=== PATIENT | female | born 1960 | race Caucasian/White ===

== ENCOUNTER 2016-10-02 18:45 | Inpatient (IN) | payer MEDICAID, OTHER ==
[~2016-10-02] VITALS: Ht 165.1 cm; Wt 86.4 kg
[~2016-10-02 18:45] MED LIST: FIORICET PO; QUET100T PO
--- NOTE | 2016-10-03 02:38 | ERA ---
ER Documentation Chief Complaint Date/Time DATE: 10/03/16 TIME: 02:37 Chief Complaint SUBSTERNAL CP HPI The patient is a 56-year-old female, presenting to the ER because of substernal chest pain intermittently for 1 day, associated with dizziness. The chest pain 7/10, worse with movement. She denies similar symptoms previously, denies chest pain with diaphoresis or vomiting or dyspnea. She denies abdominal pain, vomiting, dysuria, diarrhea, constipation. She does not smoke nor drink Past medical history: Hypertension, bipolar disorder Past surgical history: ROS All systems reviewed and are negative except as per history of present illness. Medications Home Meds Active Scripts Acetamin/Butalbital/Caffeine* (Fioricet*) 1 Tab Tab, 1 TAB PO Q4H Y for PAIN LEVEL 1-5 for 14 Days, TAB Prov:ASPEN CHILEL MD 12/01/15 Reported Medications Quetiapine Fumarate* (Seroquel*) 100 Mg Tablet, 100 MG PO HS, TAB 08/26/14 Allergies Allergies: Coded Allergies: No Known Allergy (Unverified , 11/05/14) PMhx/Soc History of Surgery: Yes () Anesthesia Reaction: No Hx Neurological Disorder: No Hx Respiratory Disorders: No Hx Cardiac Disorders: Yes (HTN) Hx Psychiatric Problems: Yes (BIPOLAR) Hx Miscellaneous Medical Probl: No Hx Alcohol Use: No Hx Substance Use: No Hx Tobacco Use: No Physical Exam Vitals Vital Signs Date Time Temp Pulse Resp B/P Pulse Ox O2 Delivery O2 Flow Rate FiO2 10/02/16 18:49 99.0 98 16 181/87 97 Physical Exam Const: No acute distress. Head: Atraumatic. Eyes: Normal Conjunctiva. ENT: Normal External Ears, Nose and Mouth. Neck: Full range of motion. No meningismus. Resp: Clear to auscultation bilaterally. Cardio: Regular rate and rhythm, no murmurs. Abd: Soft, non distended, normal bowel sounds, non tender. Skin: No petechiae or rashes. Back: No midline or flank tenderness. Ext: No cyanosis, or edema. Neur: Awake and alert. No focal deficit Psych: Normal Mood and Affect. Result Diagram: 10/03/16 0319 10/03/16 0319 Results 24 hrs Laboratory Tests Test 10/03/16 03:19 White Blood Count 7.410^3/ul Red Blood Count 4.4810^6/ul Hemoglobin 13.9g/dl Hematocrit 40.1% Mean Corpuscular Volume 89.5fl Mean Corpuscular Hemoglobin 31.0pg Mean Corpuscular Hemoglobin Concent 34.7g/dl Red Cell Distribution Width 12.7% Platelet Count 49738^3/UL Mean Platelet Volume 11.6fl Neutrophils % 55.5% Lymphocytes % 32.9% Monocytes % 9.1% Eosinophils % 1.9% Basophils % 0.5% Nucleated Red Blood Cells % 0.0/100WBC Neutrophils # 4.110^3/ul Lymphocytes # 2.410^3/ul Monocytes # 0.710^3/ul Eosinophils # 0.110^3/ul Basophils # 0.010^3/ul Nucleated Red Blood Cells # 0.010^3/ul Prothrombin Time 13.3Sec Prothrombin Time Ratio 1.0 INR International Normalized Ratio 1.01 Activated Partial Thromboplast Time 30.8Sec Sodium Level 142mmol/L Potassium Level 4.3mmol/L Chloride Level 107mmol/L Carbon Dioxide Level 22mmol/L Anion Gap 17 Blood Urea Nitrogen 14mg/dl Creatinine 0.62mg/dl Glucose Level 93mg/dl Calcium Level 9.0mg/dl Creatine Kinase 183IU/L Creatine Kinase Index 0.8 Creatinine Kinase MB (Mass) 1.55ng/ml Troponin I < 0.012ng/ml Current Medications Medications (Trade) Dose Ordered Sig/Dandre Route PRN Reason Start Time Stop Time Status Last Admin Dose Admin Aspirin (Aspirin) 325 mg ONCE STAT PO 10/03/16 02:43 10/03/16 02:45 DC 10/03/16 03:02 Nitroglycerin (Nitroglycerin 2% Oint) 1 inch ONCE STAT TD 10/03/16 02:43 10/03/16 02:45 DC 10/03/16 03:02 Procedures/MDM EKG: At 6:55 PM read by emergency physician Rate/Rhythm: Normal Sinus Rhythm 88 beats/min QRS, ST, T-waves: No ST elevation, no T inversion Impression: Normal EKG EKG: At 3:21 AM read by emergency physician Rate/Rhythm: Sinus bradycardia 58 beats/min QRS, ST, T-waves: No ST elevation, no T inversion Impression: Normal EKG MEDICAL MAKING DECISION: The patient is a 56-year-old female, presenting with acute chest pain, concerning for ACS. She was treated with aspirin 325 mg p.o. and 1 inch of nitroglycerin ointment with good response. The differential diagnoses considered include but are not limited to acute coronary syndrome, acute myocardial infarction, pericarditis, pulmonary embolism, aortic dissection , pneumonia, pleural effusion, pneumothorax, GERD, chest wall pain. Departure Diagnosis: Primary Impression: Chest pain Condition: Stable Comments I discussed the findings with the patient. I discussed the patient with the on- call hospitalist Dr. George who was made aware of the lab, the treatment, the patient condition. The patient is admitted to telemetry for 24 hour observation at 5 AM SEA NUÑEZ MD October 03, 2016 02:38
[2016-10-03] MEDS ORDERED: ASPIRIN 325 MG TAB PO STA (02:43)
[2016-10-03] MEDS ORDERED: NITROGLYCERIN 2% 1 GM OINT PKT TD STA (02:43)
[2016-10-03 03:39] LABS: ADD SCAN DIFF NO
--- NOTE | 2016-10-03 03:42 | RADRPT ---
PROCEDURE: Chest. CLINICAL INDICATION: Chest pain. TECHNIQUE: Single frontal view of the chest was obtained. COMPARISON: None. FINDINGS: The cardiac silhouette is within normal limits. The aortic arch is unremarkable. There is no focal consolidation, vascular congestion or pleural effusion. There is no pneumothorax. IMPRESSION: No evidence for active cardiopulmonary disease. .Clint French MD, MD Date Time Electronically viewed and signed by .Clint French MD, on 10/03/2016 03:41 .T/
[2016-10-03 03:57] LABS: POTASSIUM 4.3 mmol/L (3.5-5.1)
[2016-10-03 03:59] LABS: INR 1.01; PROTIME 13.3 Sec (12.2-14.2)
[2016-10-03 04:00] LABS: CREATININE 0.62 mg/dl (0.44-1.00); PARTIAL THROMBOPLASTIN TIME 30.8 Sec (25.0-35.0)
[2016-10-03 04:01] LABS: BASOPHILS % 0.5 % (0.0-2.0); CREATINE KINASE 183 IU/L (23-200); EOSINOPHILS # 0.1 10^3/ul (0.0-0.5); EOSINOPHILS % 1.9 % (0.0-7.0); HEMATOCRIT 40.1 % (37.0-47.0); HEMOGLOBIN 13.9 g/dl (12.0-16.0); LYMPHOCYTES # 2.4 10^3/ul (0.8-2.9); LYMPHOCYTES % 32.9 % (15.0-51.0); MEAN CORPUSCULAR HGB CONC 34.7 g/dl (32.0-37.0); MEAN CORPUSCULAR VOLUME 89.5 fl (82.0-101.0); MEAN PLATELET VOLUME 11.6 fl (7.4-10.4); MONOCYTE # 0.7 10^3/ul (0.3-0.9); MONOCYTES % 9.1 % (0.0-11.0); NEUTROPHIL # 4.1 10^3/ul (1.6-7.5); NEUTROPHILS % 55.5 % (39.0-77.0); PLATELET COUNT 189 10^3/UL (140-415); RED BLOOD COUNT 4.48 10^6/ul (4.20-5.40); RED CELL DISTRIBUTION WIDTH 12.7 % (11.5-14.5); WHITE BLOOD COUNT 7.4 10^3/ul (4.8-10.8)
[2016-10-03 04:02] LABS: CREATINE KINASE 173 IU/L (23-200)
[2016-10-03 04:10] LABS: CK-MB 1.55 ng/ml (0.0-2.4)
[2016-10-03 04:11] LABS: CK-MB 1.52 ng/ml (0.0-2.4)
[2016-10-03 04:12] LABS: TROPONIN-I 0.012 ng/ml (0.00-0.12)
[2016-10-03 04:14] LABS: TROPONIN-I < 0.012 ng/ml (0.00-0.12)
[2016-10-03] MEDS ORDERED: BEN25 PO (07:55)
[2016-10-03] MEDS ORDERED: LISI10TA2 PO (07:55)
[2016-10-03] MEDS ORDERED: ONDANSETRON 4 MG INJ IV STA (08:11)
[2016-10-03 08:19] LABS: CHOL/HDL RATIO 6.2 RATIO
[2016-10-03 11:03] LABS: CREATINE KINASE 166 IU/L (23-200)
[2016-10-03 11:14] LABS: CK-MB 1.58 ng/ml (0.0-2.4)
[2016-10-03 11:27] LABS: TROPONIN-I < 0.012 ng/ml (0.00-0.12)
--- NOTE | 2016-10-03 11:36 | CONS ---
Date/Time of Note Date/Time of Note DATE: 10/03/16 TIME: 11:30 Assessment/Plan Assessment/Plan Additional Assessment/Plan Hypertension, uncontrolled Abdominal pain and chest pain Nausea and vomiting Psychiatric disorder -Patient presented with hypertension found incidentally at the dental office to be uncontrolled. Patient describing abdominal pain which radiates to the chest with nausea and vomiting. Initial cardiac enzymes are negative, ECG without any significant ischemic abnormalities. Echocardiogram has been performed and will be reviewed. Blood pressure is currently well controlled. Continue JASON inhibitor. Would concurrently evaluate other noncardiac causes of patient's symptoms. Consultation Date/Type/Reason Admit Date/Time Type of Consultation: cv Reason for Consultation Hypertension and chest pain Hx of Present Illness This is a 56-year-old female with past medical history of hypertension, psychiatric disorder who presented to her dentist yesterday for dental work. While she was there, vitals were taken and patient was found to be hypertensive with systolic blood pressure above 180. She was told to go to the emergency room for further evaluation and care. Patient was complaining of headache, intermittent abdominal pain and chest pain. She denies exertional chest pain or shortness of breath. As I came in to see the patient, she was eating and vomiting. She stated she has been nauseous since this morning but wants to eat. She currently denies any chest pain or shortness of breath but complaining of abdominal pain after vomiting. She denies any dizziness, lightheadedness. She does complain of intermittent headaches. 12 point review of systems was performed with all pertinent positives and negatives mentioned above and all else is negative Past Medical History Psychiatric disorder Medical History: hypertension Family History Significant Family History: no pertinent family hx Social History Alcohol Use: rarely Smoking Status: Never smoker Other Social History Not working Exam/Review of Systems Vital Signs Vitals Vital Signs Date Time Temp Pulse Resp B/P Pulse Ox O2 Delivery O2 Flow Rate FiO2 10/03/16 10:54 61 18 142/82 99 Room Air 10/02/16 18:49 99.0 Exam Initially vomiting but currently no apparent distress, sitting in bed Constitutional: alert, oriented Head: normocephalic Respiratory: clear to auscultation, normal air movement Cardiovascular: other (S1-S2 heard), regular rate and rhythm Gastrointestinal: bowel sounds, other (No guarding), soft, tender (Tenderness left lower quadrant and left upper quadrant) Extremities: other (No edema or cyanosis) Results Result Diagram: 10/03/16 0319 10/03/16 0319 Results 24 hrs Laboratory Tests Test 10/03/16 03:19 10/03/16 10:30 White Blood Count 7.4 # Red Blood Count 4.48 Hemoglobin 13.9 Hematocrit 40.1 Mean Corpuscular Volume 89.5 Mean Corpuscular Hemoglobin 31.0 Mean Corpuscular Hemoglobin Concent 34.7 Red Cell Distribution Width 12.7 Platelet Count 189 Mean Platelet Volume 11.6 #H Neutrophils % 55.5 Lymphocytes % 32.9 Monocytes % 9.1 Eosinophils % 1.9 Basophils % 0.5 Nucleated Red Blood Cells % 0.0 Neutrophils # 4.1 Lymphocytes # 2.4 Monocytes # 0.7 Eosinophils # 0.1 Basophils # 0.0 Nucleated Red Blood Cells # 0.0 Prothrombin Time 13.3 Prothrombin Time Ratio 1.0 INR International Normalized Ratio 1.01 Activated Partial Thromboplast Time 30.8 Sodium Level 142 Potassium Level 4.3 Chloride Level 107 Carbon Dioxide Level 22 Anion Gap 17 H Blood Urea Nitrogen 14 Creatinine 0.62 Glucose Level 93 Hemoglobin A1c 5.4 Calcium Level 9.0 Creatine Kinase 183 166 Creatine Kinase Index 0.8 1.0 Creatinine Kinase MB (Mass) 1.55 1.58 Troponin I < 0.012 < 0.012 Triglycerides Level 113 Cholesterol Level 81 L LDL Cholesterol, Calculated 45 HDL Cholesterol 13 L Cholesterol/HDL Ratio 6.2 Procedures Procedures ECG demonstrates sinus rhythm, normal QRS duration, no significant ischemic ST2 abnormalities. This is ECG done after patient vomiting. Antonio Mooney DO October 03, 2016 11:36
--- NOTE | 2016-10-03 13:14 | RADRPT ---
Echocardiogram Report Patient Name: ONIEL ELLINGTON Gender: Female Date: 1960 Study Date: 03-Oct-2016 Winch Runner: SUKHJINDER [facility] Location: [facility] Ref. Physician: MERNA STEVENS Quality: Adequate Procedures: Transthoracic echocardiogram with complete 2D, M-Mode, and doppler examination. Indications: Chest Pain. 2D/M Mode Doppler Measurement Value Normal Ranges Measurement Value Normal Ranges AoR Diam MM 1.7 cm AV Peak Elvin 1.1 m/sec LA/Ao MM 1.9 AV Peak PG 5.1 mmHg LA Dimen MM 3.2 cm LVOT Peak Elvin 0.9 m/sec LVIDd 2D 4.7 3.5 - 5.6 cm LVOT Peak PG 3.2 mmHg LVIDs 2D 3.5 2.1 - 4.1 cm MV E Peak Elvin 0.6 m/sec LVPWd 2D 1.3 0.6 - 1.1 cm MV A Peak Elvin 0.8 m/sec IVSd 2D 1.3 0.6 - 1.1 cm MV E/A 0.8 AoR Diam 2D 2.4 2.0 - 3.7 cm MV Decel Time 162 msec EDV 2D 102.8 cm3 MV Decel [place] 4 ESV 2D 41.6 cm3 MV E/A 0.8 LA Dimen 2D 3.2 2.3 - 4.0 cm Findings Left Ventricle: Normal left ventricular systolic function. Normal left ventricular cavity size. Mild concentric left ventricular hypertrophy. Ejection fraction is visually estimated at 60 %. Tissue Doppler/Mitral Doppler indices are consistent with impaired relaxation (Stage I diastolic dysfunction). Right Ventricle: Normal right ventricular size. Normal right ventricular systolic function. Left Atrium: The left atrium is normal in size. Right Atrium: The right atrium is normal in size. Mitral Valve: Mitral valve leaflets appear mildly thickened. Mild mitral annular calcification. Trace mitral regurgitation. Aortic Valve: No significant aortic stenosis or insufficiency. Aortic cusps appear mildly calcified. Tricuspid Valve: Normal appearance of the tricuspid valve. There is mild tricuspid regurgitation. Pulmonic Valve: There is trace pulmonic regurgitation. Pericardium: Normal pericardium with no significant pericardial effusion. Aorta: Normal aortic root. IVC: Normal size and normal respiratory collapse consistent with normal right atrial pressure. Conclusions 1.Normal left ventricular systolic function. Normal left ventricular cavity size. Mild concentric left ventricular hypertrophy. Ejection fraction is visually estimated at 60 %. Tissue Doppler/Mitral Doppler indices are consistent with impaired relaxation (Stage I diastolic dysfunction). 2.Normal right ventricular size. Normal right ventricular systolic function. 3.The left atrium is normal in size. 4.The right atrium is normal in size. 5.No significant aortic stenosis or insufficiency. 6.There is mild tricuspid regurgitation. 7.Trace mitral regurgitation. 8.Normal pericardium with no significant pericardial effusion. Electronically Signed By: Antonio Mooney 03-Oct-2016 13:14:30 -0700 Patient Name: ONIEL ELLINGTON Study Date: 03-Oct-2016 [id number]
--- NOTE | 2016-10-03 15:32 | HP ---
DATE OF ADMISSION: 10/02/2016 REASON FOR PRESENTATION: Chest pain. HISTORY OF PRESENT ILLNESS: This is a 56-year-old lady with history of hypertension, psychiatric di sorder, was seen by a dentist yesterday, found to be hypertensive, came to the emergency room for fu rther evaluation. Here was complaining of mild abdominal discomfort and chest discomfort. No nause a, no vomiting, no radiation of pain, no hemoptysis, hematemesis. Denies any shortness of breath, n o prior history of cardiac problems. PAST MEDICAL HISTORY: Hypertension, psychiatric disorder. SOCIAL HISTORY: She is a nonsmoker, no alcohol, no history of drug use. FAMILY HISTORY: Noncontributory. SYSTEMS REVIEW: A 12-point review of system was negative other than that mentioned above. PHYSICAL EXAMINATION: GENERAL: Well-nourished, well-developed lady, comfortable at rest, no acute distress. VITAL SIGNS: Temperature 98, pulse 61, blood pressure 140/82, O2 saturation 99% on room air. NECK: Supple. No JVD or lymphadenopathy. CARDIAC: S1, S2, no added sounds or murmurs. CHEST: Diminished air entry bilaterally. ABDOMEN: Soft, nontender, obese. EXTREMITIES: No cyanosis, clubbing or edema. NEUROLOGIC: Generalized weakness. LABORATORY DATA: White count 7.4, hemoglobin 13.9. Chemistry within normal limits. Troponins are negative. EKG shows normal sinus rhythm, no acute ischemic changes. DIAGNOSTIC STUDIES: Chest x-ray was unremarkable. Echocardiogram shows preserved ejection fraction , stage 1 diastolic dysfunction. IMPRESSION AND PLAN: 1. Chest pain, rule out coronary ischemia which seems unlikely given initial study and history. 2. History of hypertension. 3. Anxiety disorder. The patient will need: 1. Cardiac evaluation and recommendations, a stress test if indicated. 2. Continue psych medications. 3. Discharge soon. Follow up with primary care physician. Dictated By: TOBIAS REAVES/LINDSEY Conf#: [id number] DID#: [id number]
[2016-10-03 16:03] VITALS: BP 162/78; PULSE 58; RESP 20; Ht 165.1 cm; Wt 86.4 kg
[2016-10-03] MEDS ORDERED: ALPRAZOLAM 0.5 MG TAB PO PRN (16:30)
[2016-10-03] MEDS ORDERED: ONDANSETRON 4 MG INJ IV PRN (16:30)
[2016-10-03 16:47] VITALS: PULSE 58
[2016-10-03] MEDS: ACETAMINOPHEN 325 MG TAB PO PRN (16:51)
[2016-10-03 20:19] VITALS: PULSE 58
[2016-10-03 20:54] VITALS: BP 138/79; RESP 18
[2016-10-03 21:06] LABS: ADD UMIC YES; URINE BILIRUBIN (Dip) NEGATIVE (NEGATIVE); URINE BLOOD (Dip) TRACE (NEGATIVE); URINE COLOR LT. YELLOW (YELLOW); URINE GLUCOSE (Dip) NEGATIVE (NEGATIVE); URINE KETONES (Dip) 40 (NEGATIVE); URINE LEUKOCYTE ESTERASE (Dip) NEGATIVE (NEGATIVE); URINE NITRITE (Dip) NEGATIVE (NEGATIVE); URINE TOTAL PROTEIN (Dip) NEGATIVE (NEGATIVE); URINE UROBILINOGEN (Dip) 0.2 E.U./dL (0.1-1.0)
[2016-10-03 21:16] LABS: BACTERIA,URINE FEW; SQUAMOUS EPITHELIAL CELL,UR MODERATE
[2016-10-03] MEDS: QUETIAPINE 100 MG TAB PO SCH (21:33)
[2016-10-04] VITALS (17 sets, daily range): BP systolic 107–150; BP diastolic 60–83; PULSE 53–154; RESP 18–20
[2016-10-04 07:28] LABS: ADD SCAN DIFF NO
[2016-10-04 07:38] LABS: BASOPHILS % 0.4 % (0.0-2.0); EOSINOPHILS # 0.1 10^3/ul (0.0-0.5); EOSINOPHILS % 1.4 % (0.0-7.0); HEMATOCRIT 41.1 % (37.0-47.0); HEMOGLOBIN 13.6 g/dl (12.0-16.0); LYMPHOCYTES % 24.8 % (15.0-51.0); MEAN CORPUSCULAR HEMOGLOBIN 29.8 pg (29.0-33.0); MEAN CORPUSCULAR HGB CONC 33.1 g/dl (32.0-37.0); MEAN CORPUSCULAR VOLUME 90.1 fl (82.0-101.0); MEAN PLATELET VOLUME 11.5 fl (7.4-10.4); MONOCYTE # 0.8 10^3/ul (0.3-0.9); NEUTROPHIL # 5.1 10^3/ul (1.6-7.5); NEUTROPHILS % 63.2 % (39.0-77.0); PLATELET COUNT 205 10^3/UL (140-415); RED BLOOD COUNT 4.56 10^6/ul (4.20-5.40)
[2016-10-04 07:54] LABS: POTASSIUM 3.3 mmol/L (3.5-5.1)
[2016-10-04 07:56] LABS: CREATININE 0.65 mg/dl (0.44-1.00)
[2016-10-04 07:57] LABS: CALCIUM 8.7 mg/dl (8.4-10.2); MAGNESIUM 2.2 mg/dl (1.7-2.5); PHOSPHORUS 4.2 mg/dl (2.5-4.9)
[2016-10-04 07:59] LABS: AMYLASE 52 U/L (11-123)
[2016-10-04 09:10] LABS: ALBUMIN 3.8 g/dl (3.3-4.9); BILIRUBIN,INDIRECT 0.6 mg/dl (0-1.1); BILIRUBIN,TOTAL 0.6 mg/dl (0.2-1.3); TOTAL PROTEIN 6.4 g/dl (6.1-8.1)
[2016-10-04] MEDS ORDERED: ASPIRIN (EC) 325 MG TAB PO ONE (09:30)
[2016-10-04] MEDS ORDERED: SOD CHLORIDE 0.9% 1,000 ML IV ONE (09:30)
[2016-10-04] MEDS: morphine 2 MG INJ IV PRN (09:31)
[2016-10-04] MEDS: LISINOPRIL 10 MG TAB PO SCH (09:32)
--- NOTE | 2016-10-04 09:53 | PN ---
Date/Time of Note Date/Time of Note DATE: 10/04/16 TIME: 09:49 Assessment/Plan VTE Prophylaxis VTE Prophylaxis Intervention: SCD's Lines/Catheters IV Catheter Type (from Nrsg): Saline Lock Assessment/Plan Assessment/Plan 1. Chest pain, rule out coronary ischemia 2. Hypertension: now controlled 3. Anxiety disorder. 4. Sinus tachycardia : ?anxiety, r/o thyroid disease PLAN: * Tachycardia could have been a source for her pain * complete ACS r/o, ASA and morphine for pain / await cardiology recs/ will initiate low dose BB therapy Subjective 24 Hr Interval Summary Free Text/Dictation patient still reporting mid sternal chest pain, also some pleurisy Cardiovascular: chest pain Exam/Review of Systems Vital Signs Vitals Vital Signs Date Time Temp Pulse Resp B/P Pulse Ox O2 Delivery O2 Flow Rate FiO2 10/04/16 08:52 151 10/04/16 07:37 97.8 18 112/68 98 10/03/16 16:03 Room Air Exam Constitutional: alert, obese, oriented Psych: anxiety Head: normocephalic Eyes: PERRL ENMT: mucosa pink and moist Neck: non-tender, supple Respiratory: clear to auscultation, No labored breathing, No wheezing Cardiovascular: nl pulses, regular rate and rhythm, No murmurs/extra sounds Gastrointestinal: bowel sounds, non-tender, soft Neurological: nl mental status Results Result Diagram: 10/04/16 0705 10/04/16 0705 Results 24 hrs Laboratory Tests Test 10/03/16 10:30 10/03/16 17:50 10/03/16 18:55 10/04/16 07:05 Creatine Kinase 166 Creatine Kinase Index 1.0 Creatinine Kinase MB (Mass) 1.58 Troponin I < 0.012 < 0.012 Urine Color LT. YELLOW Urine Clarity CLEAR Urine pH 6.5 Urine Specific [place] 1.015 Urine Ketones 40 Urine Nitrite NEGATIVE Urine Bilirubin NEGATIVE Urine Urobilinogen 0.2 E.U./dL Urine Leukocyte Esterase NEGATIVE Urine Microscopic RBC 2-5 Urine Microscopic WBC 0-2 Urine Squamous Epithelial Cells MODERATE Urine Bacteria FEW Urine Hemoglobin TRACE Urine Glucose NEGATIVE Urine Total Protein NEGATIVE White Blood Count 8.0 Red Blood Count 4.56 Hemoglobin 13.6 Hematocrit 41.1 Mean Corpuscular Volume 90.1 Mean Corpuscular Hemoglobin 29.8 Mean Corpuscular Hemoglobin Concent 33.1 Red Cell Distribution Width 13.0 Platelet Count 205 Mean Platelet Volume 11.5 H Neutrophils % 63.2 Lymphocytes % 24.8 Monocytes % 10.0 Eosinophils % 1.4 Basophils % 0.4 Nucleated Red Blood Cells % 0.0 Neutrophils # 5.1 Lymphocytes # 2.0 Monocytes # 0.8 Eosinophils # 0.1 Basophils # 0.0 Nucleated Red Blood Cells # 0.0 Sodium Level 143 Potassium Level 3.3 L Chloride Level 104 Carbon Dioxide Level 27 Anion Gap 15 Blood Urea Nitrogen 17 Creatinine 0.65 Glucose Level 97 Calcium Level 8.7 Phosphorus Level 4.2 Magnesium Level 2.2 Total Bilirubin 0.6 Direct Bilirubin 0.00 Indirect Bilirubin 0.6 Aspartate Amino Transf (AST/SGOT) 29 Alanine Aminotransferase (ALT/SGPT) 51 Alkaline Phosphatase 65 Total Protein 6.4 Albumin 3.8 Amylase Level 52 Lipase 108 Medications Medications Current Medications Lisinopril (Zestril) 10 mg DAILY PO Last administered on 10/04/16 09:32; Admin Dose 10 MG; Start 10/04/16 at 09:00 Quetiapine Fumarate (Seroquel) 100 mg HS PO Last administered on 10/03/16 21:33 ; Admin Dose 100 MG; Start 10/03/16 at 21:00 Acetaminophen (Tylenol Tab) 325 mg Q6H PRN PO PAIN AND OR ELEVATED TEMP Last administered on 10/03/16 16:51; Admin Dose 325 MG; Start 10/03/16 at 16:30 Ondansetron HCl (Zofran Inj) 4 mg Q6H PRN IV NAUSEA AND/OR VOMITING Last administered on 10/03/16 16:51; Admin Dose 4 MG; Start 10/03/16 at 16:30 Alprazolam (Xanax) 0.5 mg Q8H PRN PO ANXIETY; Start 10/03/16 at 16:30 Morphine Sulfate (morphine) 2 mg Q4H PRN IV pain Last administered on 10/04/16 09:31; Admin Dose 2 MG; Start 10/04/16 at 09:30 Aspirin 81 mg 81 mg DAILY PO ; Start 10/05/16 at 09:00 Sodium Chloride 1,000 ml @ 1,000 mls/hr Q1H ONCE IV Last administered on 09:31; Admin Dose 1,000 MLS/HR; Start 10/04/16 at 09:30; Stop 10/04/16 at 10: 29 Potassium Chloride/Sodium Chloride (KCl/NS) 110 ml @ 55 mls/hr ONCE ONCE IVPB ; Start 10/04/16 at 10:30; Stop 10/04/16 at 12:29 Procedures Procedures PROCEDURE: Chest. CLINICAL INDICATION: Chest pain. TECHNIQUE: Single frontal view of the chest was obtained. COMPARISON: None. FINDINGS: The cardiac silhouette is within normal limits. The aortic arch is unremarkable. There is no focal consolidation, vascular congestion or pleural effusion. There is no pneumothorax. IMPRESSION: No evidence for active cardiopulmonary disease. .Clint French MD, MD Date Time Electronically viewed and signed by .Clint French MD, MD on 10/03/2016 03:41 .T/ CC: ANTONIO NUÑEZ MD Echocardiogram Report Patient Name: ONIEL ELLINGTON Gender: Female Date: 1960 Study Date: 03-Oct-2016 Automatic Coin Machine Mechanic: SUKHJINDER [facility] Location: [facility] Ref. Physician: MERNA STEVENS Quality: Adequate Procedures: Transthoracic echocardiogram with complete 2D, M-Mode, and doppler examination. Indications: Chest Pain. 2D/M Mode Doppler Measurement Value Normal Ranges Measurement Value Normal Ranges AoR Diam MM 1.7 cm AV Peak Elvin 1.1 m/sec LA/Ao MM 1.9 AV Peak PG 5.1 mmHg LA Dimen MM 3.2 cm LVOT Peak Elvin 0.9 m/sec LVIDd 2D 4.7 3.5 - 5.6 cm LVOT Peak PG 3.2 mmHg LVIDs 2D 3.5 2.1 - 4.1 cm MV E Peak Elvin 0.6 m/sec LVPWd 2D 1.3 0.6 - 1.1 cm MV A Peak Elvin 0.8 m/sec IVSd 2D 1.3 0.6 - 1.1 cm MV E/A 0.8 AoR Diam 2D 2.4 2.0 - 3.7 cm MV Decel Time 162 msec EDV 2D 102.8 cm3 MV Decel [place] 4 ESV 2D 41.6 cm3 MV E/A 0.8 LA Dimen 2D 3.2 2.3 - 4.0 cm Findings Left Ventricle: Normal left ventricular systolic function. Normal left ventricular cavity size. Mild concentric left ventricular hypertrophy. Ejection fraction is visually estimated at 60 %. Tissue Doppler/Mitral Doppler indices are consistent with impaired relaxation (Stage I diastolic dysfunction). Right Ventricle: Normal right ventricular size. Normal right ventricular systolic function. Left Atrium: The left atrium is normal in size. Right Atrium: The right atrium is normal in size. Mitral Valve: Mitral valve leaflets appear mildly thickened. Mild mitral annular calcification. Trace mitral regurgitation. Aortic Valve: No significant aortic stenosis or insufficiency. Aortic cusps appear mildly calcified. Tricuspid Valve: Normal appearance of the tricuspid valve. There is mild tricuspid regurgitation. Pulmonic Valve: There is trace pulmonic regurgitation. Pericardium: Normal pericardium with no significant pericardial effusion. Aorta: Normal aortic root. IVC: Normal size and normal respiratory collapse consistent with normal right atrial pressure. Conclusions 1. Normal left ventricular systolic function. Normal left ventricular cavity size. Mild concentric left ventricular hypertrophy. Ejection fraction is visually estimated at 60 %. Tissue Doppler/Mitral Doppler indices are consistent with impaired relaxation (Stage I diastolic dysfunction). 2. Normal right ventricular size. Normal right ventricular systolic function. 3. The left atrium is normal in size. 4. The right atrium is normal in size. 5. No significant aortic stenosis or insufficiency. 6. There is mild tricuspid regurgitation. 7. Trace mitral regurgitation. 8. Normal pericardium with no significant pericardial effusion. Electronically Signed By: Antonio Mooney 03-Oct-2016 13:14:30 -0700 Patient Name: ONIEL ELLINGTON Study Date: 03-Oct-2016 CHARLES MCLEOD October 04, 2016 09:53
--- NOTE | 2016-10-04 09:58 | CONS ---
Date/Time of Note Date/Time of Note DATE: 10/04/16 TIME: 09:57 Assessment/Plan Assessment/Plan Chief Complaint/Hosp Course Hypertension, uncontrolled Abdominal pain and chest pain Nausea and vomiting Psychiatric disorder Problems: Additional Assessment/Plan 1) HTN controlled 2) doubt ACS 3) no further orders from cards Consultation Date/Type/Reason Admit Date/Time October 03, 2016 at 05:10 Initial Consult Date Type of Consultation: cv 24 HR Interval Summary Free Text/Dictation resting, no chest pain, no sob Detailed Summary Respiratory: no complaints Cardiovascular: no complaints Gastrointestinal: no complaints Musculoskeletal: no complaints Skin: no complaints Neurologic: no complaints Exam/Review of Systems Vital Signs Vitals Vital Signs Date Time Temp Pulse Resp B/P Pulse Ox O2 Delivery O2 Flow Rate FiO2 10/04/16 08:52 151 10/04/16 07:37 97.8 18 112/68 98 10/03/16 16:03 Room Air Exam Constitutional: alert, oriented Head: atraumatic, normocephalic Neck: supple Respiratory: clear to auscultation Cardiovascular: regular rate and rhythm Gastrointestinal: soft Musculoskeletal: nl extremities to inspection Results Result Diagram: 10/04/16 0705 10/04/16 0705 Results 24 hrs Laboratory Tests Test 10/03/16 10:30 10/03/16 17:50 10/03/16 18:55 10/04/16 07:05 Creatine Kinase 166 Creatine Kinase Index 1.0 Creatinine Kinase MB (Mass) 1.58 Troponin I < 0.012 < 0.012 Urine Color LT. YELLOW Urine Clarity CLEAR Urine pH 6.5 Urine Specific Sumner 1.015 Urine Ketones 40 Urine Nitrite NEGATIVE Urine Bilirubin NEGATIVE Urine Urobilinogen 0.2 E.U./dL Urine Leukocyte Esterase NEGATIVE Urine Microscopic RBC 2-5 Urine Microscopic WBC 0-2 Urine Squamous Epithelial Cells MODERATE Urine Bacteria FEW Urine Hemoglobin TRACE Urine Glucose NEGATIVE Urine Total Protein NEGATIVE White Blood Count 8.0 Red Blood Count 4.56 Hemoglobin 13.6 Hematocrit 41.1 Mean Corpuscular Volume 90.1 Mean Corpuscular Hemoglobin 29.8 Mean Corpuscular Hemoglobin Concent 33.1 Red Cell Distribution Width 13.0 Platelet Count 205 Mean Platelet Volume 11.5 H Neutrophils % 63.2 Lymphocytes % 24.8 Monocytes % 10.0 Eosinophils % 1.4 Basophils % 0.4 Nucleated Red Blood Cells % 0.0 Neutrophils # 5.1 Lymphocytes # 2.0 Monocytes # 0.8 Eosinophils # 0.1 Basophils # 0.0 Nucleated Red Blood Cells # 0.0 Sodium Level 143 Potassium Level 3.3 L Chloride Level 104 Carbon Dioxide Level 27 Anion Gap 15 Blood Urea Nitrogen 17 Creatinine 0.65 Glucose Level 97 Calcium Level 8.7 Phosphorus Level 4.2 Magnesium Level 2.2 Total Bilirubin 0.6 Direct Bilirubin 0.00 Indirect Bilirubin 0.6 Aspartate Amino Transf (AST/SGOT) 29 Alanine Aminotransferase (ALT/SGPT) 51 Alkaline Phosphatase 65 Total Protein 6.4 Albumin 3.8 Amylase Level 52 Lipase 108 Medications Medications Current Medications Lisinopril (Zestril) 10 mg DAILY PO Last administered on 10/04/16 09:32; Admin Dose 10 MG; Start 10/04/16 at 09:00 Quetiapine Fumarate (Seroquel) 100 mg HS PO Last administered on 10/03/16 21:33 ; Admin Dose 100 MG; Start 10/03/16 at 21:00 Acetaminophen (Tylenol Tab) 325 mg Q6H PRN PO PAIN AND OR ELEVATED TEMP Last administered on 10/03/16 16:51; Admin Dose 325 MG; Start 10/03/16 at 16:30 Ondansetron HCl (Zofran Inj) 4 mg Q6H PRN IV NAUSEA AND/OR VOMITING Last administered on 10/03/16 16:51; Admin Dose 4 MG; Start 10/03/16 at 16:30 Alprazolam (Xanax) 0.5 mg Q8H PRN PO ANXIETY; Start 10/03/16 at 16:30 Morphine Sulfate (morphine) 2 mg Q4H PRN IV pain Last administered on 10/04/16 09:31; Admin Dose 2 MG; Start 10/04/16 at 09:30 Aspirin 81 mg 81 mg DAILY PO ; Start 10/05/16 at 09:00 Sodium Chloride 1,000 ml @ 1,000 mls/hr Q1H ONCE IV Last administered on 09:31; Admin Dose 1,000 MLS/HR; Start 10/04/16 at 09:30; Stop 10/04/16 at 10: 29 Potassium Chloride/Sodium Chloride (KCl/NS) 110 ml @ 55 mls/hr ONCE ONCE IVPB ; Start 10/04/16 at 10:30; Stop 10/04/16 at 12:29 IRIS SWANN MD October 04, 2016 09:58
[2016-10-04] MEDS ORDERED: POTASSIUM CHLORIDE 20 MEQ in SOD CHLORIDE 0.9% 100 ML IVPB ONE (10:30)
[2016-10-04 11:08] LABS: CREATINE KINASE 131 IU/L (23-200)
[2016-10-04 11:17] LABS: CK-MB 1.58 ng/ml (0.0-2.4)
[2016-10-04 11:39] LABS: TROPONIN-I < 0.012 ng/ml (0.00-0.12)
[2016-10-04] MEDS: METOPROLOL 25 MG TAB PO SCH ×2 (12:03→21:02)
[2016-10-04 16:46] LABS: CREATINE KINASE 146 IU/L (23-200)
[2016-10-04 16:58] LABS: CK-MB 1.54 ng/ml (0.0-2.4)
[2016-10-04 17:00] LABS: TROPONIN-I < 0.012 ng/ml (0.00-0.12)
[2016-10-04] MEDS: QUETIAPINE 100 MG TAB PO SCH (21:02)
[2016-10-04] MEDS: ACETAMINOPHEN 325 MG TAB PO PRN (21:10)
[2016-10-05] VITALS (12 sets, daily range): BP systolic 120–142; BP diastolic 66–92; PULSE 45–67; RESP 17–20
[2016-10-05] MEDS: PANTOPRAZOLE (EC) 40 MG TAB PO SCH (06:08)
[2016-10-05] MEDS: ASPIRIN (EC) 81 MG TAB PO SCH (08:51)
[2016-10-05] MEDS: LISINOPRIL 10 MG TAB PO SCH (08:51)
[2016-10-05] MEDS: METOPROLOL 25 MG TAB PO SCH ×2 (08:51→20:42)
[2016-10-05] MEDS: morphine 2 MG INJ IV PRN (13:53)
--- NOTE | 2016-10-05 14:47 | CONS ---
Date/Time of Note Date/Time of Note DATE: 10/05/16 TIME: 14:45 Assessment/Plan Assessment/Plan Additional Assessment/Plan Hypertension, uncontrolled Abdominal pain and chest pain Nausea and vomiting Psychiatric disorder SVT Preserved ejection fraction -Patient with paroxysmal episodes of SVT seen on telemetry. Would continue beta -jef, supplement potassium to maintain above 4.0 and magnesium above 2.0. Continue telemetry monitoring. Consultation Date/Type/Reason Admit Date/Time October 03, 2016 at 05:10 Initial Consult Date Type of Consultation: cv 24 HR Interval Summary Free Text/Dictation Patient seen and examined. Still complains of chronic chest pain worse with pushing on left side of chest. Denies shortness of breath Exam/Review of Systems Vital Signs Vitals Vital Signs Date Time Temp Pulse Resp B/P Pulse Ox O2 Delivery O2 Flow Rate FiO2 10/05/16 12:39 54 10/05/16 11:57 97.4 18 120/66 97 10/03/16 16:03 Room Air Intake and Output 10/04/16 10/04/16 10/05/16 15:00 23:00 07:00 Intake Total 1500 ml 910 ml Balance 1500 ml 910 ml Exam Flat affect, no apparent distress, family at bedside Constitutional: alert, oriented Head: normocephalic Respiratory: other (Coarse breath sounds bilaterally, no wheezing) Cardiovascular: other (S1-S2 heard), regular rate and rhythm Gastrointestinal: bowel sounds, non-tender, soft Extremities: edema (Trace) Results Result Diagram: 10/04/16 0705 10/04/16 0705 Results 24 hrs Laboratory Tests Test 10/04/16 15:40 Creatine Kinase 146 Creatine Kinase Index 1.1 Creatinine Kinase MB (Mass) 1.54 Troponin I < 0.012 Thyroid Stimulating Hormone (TSH) 2.500 Medications Medications Current Medications Lisinopril (Zestril) 10 mg DAILY PO Last administered on 10/05/16 08:51; Admin Dose 10 MG; Start 10/04/16 at 09:00 Quetiapine Fumarate (Seroquel) 100 mg HS PO Last administered on 10/04/16 21:02 ; Admin Dose 100 MG; Start 10/03/16 at 21:00; Status Future Hold Acetaminophen (Tylenol Tab) 325 mg Q6H PRN PO PAIN AND OR ELEVATED TEMP Last administered on 10/04/16 21:10; Admin Dose 325 MG; Start 10/03/16 at 16:30 Ondansetron HCl (Zofran Inj) 4 mg Q6H PRN IV NAUSEA AND/OR VOMITING Last administered on 10/03/16 16:51; Admin Dose 4 MG; Start 10/03/16 at 16:30 Alprazolam (Xanax) 0.5 mg Q8H PRN PO ANXIETY; Start 10/03/16 at 16:30 Morphine Sulfate (morphine) 2 mg Q4H PRN IV pain Last administered on 10/05/16 13:53; Admin Dose 2 MG; Start 10/04/16 at 09:30 Aspirin (Halfprin) 81 mg DAILY PO Last administered on 10/05/16 08:51; Admin Dose 81 MG; Start 10/05/16 at 09:00 Metoprolol Tartrate (Lopressor) 12.5 mg BID PO Last administered on 10/05/16 08 :51; Admin Dose 12.5 MG; Start 10/04/16 at 10:00 Pantoprazole (Protonix Tab) 40 mg DAILY@06 PO Last administered on 10/05/16 06: 08; Admin Dose 40 MG; Start 10/05/16 at 06:00 Antonio Mooney DO October 05, 2016 14:47
--- NOTE | 2016-10-05 16:38 | PN ---
Date/Time of Note Date/Time of Note DATE: 10/05/16 TIME: 16:30 Assessment/Plan VTE Prophylaxis VTE Prophylaxis Intervention: LMWH Lines/Catheters IV Catheter Type (from Nrsg): Saline Lock Assessment/Plan Assessment/Plan 1. Chest pain, rule out coronary ischemia 2. Hypertension: now controlled 3. Anxiety disorder. 4. Intermittent tachycardia and bradycardia PLAN: * Per cardiology, Patient with paroxysmal episodes of SVT seen on telemetry. Would continue beta-jef, supplement potassium to maintain above 4.0 and magnesium above 2.0. Continue telemetry monitoring. * Will also get D dimer and d/c seroquel * Continue supportive care. Further interventions per clinical course. Subjective 24 Hr Interval Summary Free Text/Dictation Patient continues to report chest pain especially with respiration SVT noted on tele Patient states she only takes lisinopril 10mg at home Nurses note bradycardia while sleeping and tachycardia when ambulant Exam/Review of Systems Vital Signs Vitals Vital Signs Date Time Temp Pulse Resp B/P Pulse Ox O2 Delivery O2 Flow Rate FiO2 10/05/16 12:39 54 10/05/16 11:57 97.4 18 120/66 97 10/03/16 16:03 Room Air Intake and Output 10/04/16 10/04/16 10/05/16 15:00 23:00 07:00 Intake Total 1500 ml 910 ml Balance 1500 ml 910 ml Exam Constitutional: alert, obese, oriented Psych: Blank affect Head: normocephalic Eyes: PERRL ENMT: mucosa pink and moist Neck: non-tender, supple Respiratory: clear to auscultation, No labored breathing, No wheezing Cardiovascular: nl pulses, regular rate and rhythm, No murmurs/extra sounds Gastrointestinal: bowel sounds, non-tender, soft Neurological: nl mental status Results Result Diagram: 10/04/1670410/04/16704 Medications Medications Current Medications Lisinopril (Zestril) 10 mg DAILY PO Last administered on 10/05/16 08:51; Admin Dose 10 MG; Start 10/04/16 at 09:00 Quetiapine Fumarate (Seroquel) 100 mg HS PO Last administered on 10/04/16 21:02 ; Admin Dose 100 MG; Start 10/03/16 at 21:00; Status Future Hold Acetaminophen (Tylenol Tab) 325 mg Q6H PRN PO PAIN AND OR ELEVATED TEMP Last administered on 10/04/16 21:10; Admin Dose 325 MG; Start 10/03/16 at 16:30 Ondansetron HCl (Zofran Inj) 4 mg Q6H PRN IV NAUSEA AND/OR VOMITING Last administered on 10/03/16 16:51; Admin Dose 4 MG; Start 10/03/16 at 16:30 Alprazolam (Xanax) 0.5 mg Q8H PRN PO ANXIETY; Start 10/03/16 at 16:30 Morphine Sulfate (morphine) 2 mg Q4H PRN IV pain Last administered on 10/05/16 13:53; Admin Dose 2 MG; Start 10/04/16 at 09:30 Aspirin (Halfprin) 81 mg DAILY PO Last administered on 10/05/16 08:51; Admin Dose 81 MG; Start 10/05/16 at 09:00 Metoprolol Tartrate (Lopressor) 12.5 mg BID PO Last administered on 10/05/16 08 :51; Admin Dose 12.5 MG; Start 10/04/16 at 10:00 Pantoprazole (Protonix Tab) 40 mg DAILY@06 PO Last administered on 10/05/16 06: 08; Admin Dose 40 MG; Start 10/05/16 at 06:00 CHARLES MCLEOD October 05, 2016 16:38
[2016-10-05 17:23] LABS: ADD SCAN DIFF NO
[2016-10-05 17:25] LABS: BASOPHIL # 0.1 10^3/ul (0.0-0.1); BASOPHILS % 0.7 % (0.0-2.0); EOSINOPHILS # 0.1 10^3/ul (0.0-0.5); EOSINOPHILS % 1.9 % (0.0-7.0); HEMATOCRIT 41.2 % (37.0-47.0); HEMOGLOBIN 13.4 g/dl (12.0-16.0); LYMPHOCYTES # 2.4 10^3/ul (0.8-2.9); LYMPHOCYTES % 34.5 % (15.0-51.0); MEAN CORPUSCULAR HEMOGLOBIN 29.8 pg (29.0-33.0); MEAN CORPUSCULAR HGB CONC 32.5 g/dl (32.0-37.0); MEAN CORPUSCULAR VOLUME 91.8 fl (82.0-101.0); MEAN PLATELET VOLUME 10.9 fl (7.4-10.4); MONOCYTE # 0.7 10^3/ul (0.3-0.9); MONOCYTES % 9.4 % (0.0-11.0); NEUTROPHIL # 3.7 10^3/ul (1.6-7.5); NEUTROPHILS % 53.2 % (39.0-77.0); PLATELET COUNT 177 10^3/UL (140-415); RED BLOOD COUNT 4.49 10^6/ul (4.20-5.40); RED CELL DISTRIBUTION WIDTH 13.1 % (11.5-14.5); WHITE BLOOD COUNT 6.9 10^3/ul (4.8-10.8)
[2016-10-05 17:42] LABS: ALBUMIN 3.9 g/dl (3.3-4.9); ALBUMIN/GLOBULIN RATIO 1.39; BILIRUBIN,INDIRECT 0.3 mg/dl (0-1.1); BILIRUBIN,TOTAL 0.3 mg/dl (0.2-1.3); CALCIUM 9.3 mg/dl (8.4-10.2); CREATININE 0.63 mg/dl (0.44-1.00); MAGNESIUM 1.9 mg/dl (1.7-2.5); PHOSPHORUS 4.3 mg/dl (2.5-4.9); POTASSIUM 4.3 mmol/L (3.5-5.1); TOTAL PROTEIN 6.7 g/dl (6.1-8.1)
[2016-10-05 19:25] LABS: D-DIMER 280.98 ng/ml (<460)
[2016-10-05] MEDS: ACETAMINOPHEN 325 MG TAB PO PRN (20:42)
[2016-10-05] MEDS ORDERED: IOHEXOL 100 ML ONE (22:21)
[2016-10-05] MEDS ORDERED: SOD CHLORIDE 0.9% 100 ML ONE (22:21)
[2016-10-06] VITALS (12 sets, daily range): BP systolic 128–179; BP diastolic 64–95; PULSE 58–85; RESP 18
--- NOTE | 2016-10-06 01:14 | RADRPT ---
PROCEDURE: CTA Chest. CLINICAL INDICATION: Pleuritic chest pain, rule out pulmonary embolism. TECHNIQUE: Direct spiral axial sections were obtained from the thoracic inlet to the upper abdomen with the use of 100 cc of Omnipaque 350 nonionic intravenous contrast material. Axial MIP, coronal, and sagittal reformations were obtained. The images were reviewed on a PACS workstation. CTDIvol: 7 7.46, 18.42 mGy. DLP: 659.59 mGy-cm. One or more of the following dose reduction techniques were used: - Automated exposure control. - Adjustment of the mA and/or kV according to patient size. - Use of iterative reconstruction technique. COMPARISON: None. FINDINGS: No pulmonary embolism is identified, however evaluation for subsegmental emboli in the lung apices i s limited by respiratory motion. The main pulmonary artery is normal in caliber. There is no aorti c aneurysm. The heart is normal in size. There is no pericardial effusion. There are patchy ground-glass opacities throughout the lungs. Small bilateral pleural effusions are noted. There is no pneumothorax. No suspicious thyroid lesion is seen. There is no thoracic lymphadenopathy. The trachea and mainste m bronchi are patent. Limited evaluation of the upper abdomen is unremarkable. There is no suspicious osseous lesion. IMPRESSION: 1. No pulmonary embolism is identified, however evaluation for subsegmental emboli in the lung apice s is limited by respiratory motion. 2. Patchy ground-glass opacities throughout the lungs, possibly representing pulmonary edema, a vir al chest infection, or mosaic attenuation related to air trapping. 3. Small bilateral pleural effusions. RPTAT: HTAR .Prakash Pickens MD, MD Date Time Electronically viewed and signed by .Prakash Pickens MD, MD on 10/06/2016 01:13 .R/
[2016-10-06] MEDS: PANTOPRAZOLE (EC) 40 MG TAB PO SCH (06:04)
[2016-10-06] MEDS: ACETAMINOPHEN 325 MG TAB PO PRN ×2 (06:07→19:50)
[2016-10-06 07:18] LABS: ADD SCAN DIFF NO
[2016-10-06 07:22] LABS: BASOPHILS % 0.4 % (0.0-2.0); EOSINOPHILS # 0.2 10^3/ul (0.0-0.5); EOSINOPHILS % 2.5 % (0.0-7.0); HEMATOCRIT 41.5 % (37.0-47.0); HEMOGLOBIN 13.8 g/dl (12.0-16.0); LYMPHOCYTES # 2.4 10^3/ul (0.8-2.9); MEAN CORPUSCULAR HEMOGLOBIN 30.3 pg (29.0-33.0); MEAN CORPUSCULAR HGB CONC 33.3 g/dl (32.0-37.0); MEAN PLATELET VOLUME 11.7 fl (7.4-10.4); MONOCYTE # 0.6 10^3/ul (0.3-0.9); MONOCYTES % 8.1 % (0.0-11.0); NEUTROPHIL # 4.5 10^3/ul (1.6-7.5); NEUTROPHILS % 57.7 % (39.0-77.0); PLATELET COUNT 196 10^3/UL (140-415); RED BLOOD COUNT 4.56 10^6/ul (4.20-5.40); WHITE BLOOD COUNT 7.7 10^3/ul (4.8-10.8)
[2016-10-06 07:38] LABS: POTASSIUM 3.4 mmol/L (3.5-5.1)
[2016-10-06 07:41] LABS: CREATININE 0.75 mg/dl (0.44-1.00)
[2016-10-06 07:42] LABS: CALCIUM 9.5 mg/dl (8.4-10.2)
[2016-10-06] MEDS: ASPIRIN (EC) 81 MG TAB PO SCH (08:13)
[2016-10-06] MEDS: METOPROLOL 25 MG TAB PO SCH ×2 (08:13→19:50)
[2016-10-06] MEDS: LISINOPRIL 10 MG TAB PO SCH (08:13)
[2016-10-06] MEDS: ENOXAPARIN 40 MG/0.4 ML SYG SC SCH (08:17)
--- NOTE | 2016-10-06 11:37 | CONS ---
Date/Time of Note Date/Time of Note DATE: 10/06/16 TIME: 11:35 Assessment/Plan Assessment/Plan Additional Assessment/Plan Hypertension Abdominal pain and chest pain Nausea and vomiting Psychiatric disorder SVT Preserved ejection fraction -Patient with labile blood pressure. Current blood pressure trend is increasing , would increase dose of lisinopril. CT chest done with no evidence of pulmonary emboli. No further episodes of SVT noted on telemetry. Would continue Lopressor. Consultation Date/Type/Reason Admit Date/Time October 03, 2016 at 05:10 Type of Consultation: cv 24 HR Interval Summary Free Text/Dictation Patient feels better today, denies shortness of breath, chest pain, palpitations. Denies dizziness Exam/Review of Systems Vital Signs Vitals Vital Signs Date Time Temp Pulse Resp B/P Pulse Ox O2 Delivery O2 Flow Rate FiO2 10/06/16 09:07 167/86 10/06/16 08:05 98.0 73 18 97 10/03/16 16:03 Room Air Intake and Output 10/05/16 10/05/16 10/06/16 15:00 23:00 07:00 Intake Total 500 ml 800 ml Balance 500 ml 800 ml Exam Flat affect, no apparent distress Constitutional: alert, oriented Head: normocephalic Neck: supple Respiratory: other (Coarse breath sounds bilaterally, no wheezing) Cardiovascular: other (S1-S2 heard), regular rate and rhythm Gastrointestinal: bowel sounds, non-tender, soft Extremities: other (No edema) Results Result Diagram: 10/06/16 0605 10/06/16 0605 Results 24 hrs Laboratory Tests Test 10/05/16 17:14 10/06/16 06:05 White Blood Count 6.9 7.7 Red Blood Count 4.49 4.56 Hemoglobin 13.4 13.8 Hematocrit 41.2 41.5 Mean Corpuscular Volume 91.8 91.0 Mean Corpuscular Hemoglobin 29.8 30.3 Mean Corpuscular Hemoglobin Concent 32.5 33.3 Red Cell Distribution Width 13.1 13.0 Platelet Count 177 196 Mean Platelet Volume 10.9 H 11.7 H Neutrophils % 53.2 57.7 Lymphocytes % 34.5 31.0 Monocytes % 9.4 8.1 Eosinophils % 1.9 2.5 Basophils % 0.7 0.4 Nucleated Red Blood Cells % 0.0 0.0 Neutrophils # 3.7 4.5 Lymphocytes # 2.4 2.4 Monocytes # 0.7 0.6 Eosinophils # 0.1 0.2 Basophils # 0.1 0.0 Nucleated Red Blood Cells # 0.0 0.0 D-Dimer 280.98 D-Dimer Comment Sodium Level 139 141 Potassium Level 4.3 3.4 L Chloride Level 106 99 Carbon Dioxide Level 27 29 Anion Gap 10 # 16 Blood Urea Nitrogen 12 14 Creatinine 0.63 0.75 Glucose Level 107 94 Calcium Level 9.3 9.5 Phosphorus Level 4.3 Magnesium Level 1.9 Total Bilirubin 0.3 Direct Bilirubin 0.00 Indirect Bilirubin 0.3 Aspartate Amino Transf (AST/SGOT) 33 Alanine Aminotransferase (ALT/SGPT) 52 Alkaline Phosphatase 65 Total Protein 6.7 Albumin 3.9 Globulin 2.80 Albumin/Globulin Ratio 1.39 Medications Medications Current Medications Lisinopril (Zestril) 10 mg DAILY PO Last administered on 10/06/16 08:13; Admin Dose 10 MG; Start 10/04/16 at 09:00 Acetaminophen (Tylenol Tab) 325 mg Q6H PRN PO PAIN AND OR ELEVATED TEMP Last administered on 10/06/16 06:07; Admin Dose 325 MG; Start 10/03/16 at 16:30 Ondansetron HCl (Zofran Inj) 4 mg Q6H PRN IV NAUSEA AND/OR VOMITING Last administered on 10/03/16 16:51; Admin Dose 4 MG; Start 10/03/16 at 16:30 Alprazolam (Xanax) 0.5 mg Q8H PRN PO ANXIETY; Start 10/03/16 at 16:30 Morphine Sulfate (morphine) 2 mg Q4H PRN IV pain Last administered on 10/05/16 13:53; Admin Dose 2 MG; Start 10/04/16 at 09:30 Aspirin (Halfprin) 81 mg DAILY PO Last administered on 10/06/16 08:13; Admin Dose 81 MG; Start 10/05/16 at 09:00 Metoprolol Tartrate (Lopressor) 12.5 mg BID PO Last administered on 10/06/16 08 :13; Admin Dose 12.5 MG; Start 10/04/16 at 10:00 Pantoprazole (Protonix Tab) 40 mg DAILY@06 PO Last administered on 10/06/16 06: 04; Admin Dose 40 MG; Start 10/05/16 at 06:00 Enoxaparin Sodium (Lovenox) 40 mg DAILY SC Last administered on 10/06/16 08:17 ; Admin Dose 40 MG; Start 10/06/16 at 09:00 Antonio Mooney DO October 06, 2016 11:37 Antonio Mooney DO October 06, 2016 11:37
[2016-10-06] MEDS ORDERED: LISINOPRIL 10 MG TAB PO ONE (12:00)
[2016-10-06] MEDS ORDERED: POTASSIUM CHLORIDE (SR) 20 MEQ TAB PO STA (13:16)
[2016-10-06] MEDS ORDERED: hydrALAzine 20 MG INJ IV PRN (13:30)
[2016-10-06] MEDS: DOCUSATE SODIUM 100 MG CAP PO SCH ×2 (13:40→19:50)
--- NOTE | 2016-10-06 22:02 | PN ---
Date/Time of Note Date/Time of Note DATE: 10/06/16 TIME: 21:59 Assessment/Plan VTE Prophylaxis VTE Prophylaxis Intervention: LMWH Lines/Catheters IV Catheter Type (from [facility]): Saline Lock Urinary Cath still in place: No Assessment/Plan Chief Complaint/Hosp Course Assessment/Plan: 56 F with: 1. Chest pain, rule out coronary ischemia 2. Hypertension: now controlled 3. Anxiety disorder. 4. Intermittent tachycardia and bradycardia PLAN: * Per cardiology, JASON (-) dose increased, continue beta-jef, supplement potassium to maintain above 4.0 and magnesium above 2.0. Continue telemetry monitoring. - f/u CV rec's * Continue supportive care. Further interventions per clinical course. Problems: Subjective 24 Hr Interval Summary Free Text/Dictation No acute events overnight, seen by CV team. Exam/Review of Systems Vital Signs Vitals Vital Signs Date Time Temp Pulse Resp B/P Pulse Ox O2 Delivery O2 Flow Rate FiO2 10/06/16 20:29 69 10/06/16 17:07 98.0 18 138/90 97 10/03/16 16:03 Room Air Intake and Output 10/05/16 10/05/16 10/06/16 15:00 23:00 07:00 Intake Total 500 ml 800 ml Balance 500 ml 800 ml Exam Constitutional: alert, obese, oriented Psych: Blank affect Head: normocephalic Eyes: PERRL ENMT: mucosa pink and moist Neck: non-tender, supple Respiratory: clear to auscultation, No labored breathing, No wheezing Cardiovascular: nl pulses, regular rate and rhythm, No murmurs/extra sounds Gastrointestinal: bowel sounds, non-tender, soft Neurological: nl mental status Results Result Diagram: 10/06/1660410/06/16604 Results 24 hrs Laboratory Tests Test 10/06/16 06:05 White Blood Count 7.7 Red Blood Count 4.56 Hemoglobin 13.8 Hematocrit 41.5 Mean Corpuscular Volume 91.0 Mean Corpuscular Hemoglobin 30.3 Mean Corpuscular Hemoglobin Concent 33.3 Red Cell Distribution Width 13.0 Platelet Count 196 Mean Platelet Volume 11.7 H Neutrophils % 57.7 Lymphocytes % 31.0 Monocytes % 8.1 Eosinophils % 2.5 Basophils % 0.4 Nucleated Red Blood Cells % 0.0 Neutrophils # 4.5 Lymphocytes # 2.4 Monocytes # 0.6 Eosinophils # 0.2 Basophils # 0.0 Nucleated Red Blood Cells # 0.0 Sodium Level 141 Potassium Level 3.4 L Chloride Level 99 Carbon Dioxide Level 29 Anion Gap 16 Blood Urea Nitrogen 14 Creatinine 0.75 Glucose Level 94 Calcium Level 9.5 Medications Medications Current Medications Acetaminophen (Tylenol Tab) 325 mg Q6H PRN PO PAIN AND OR ELEVATED TEMP Last administered on 10/06/16 19:50; Admin Dose 325 MG; Start 10/03/16 at 16:30 Ondansetron HCl (Zofran Inj) 4 mg Q6H PRN IV NAUSEA AND/OR VOMITING Last administered on 10/03/16 16:51; Admin Dose 4 MG; Start 10/03/16 at 16:30 Alprazolam (Xanax) 0.5 mg Q8H PRN PO ANXIETY; Start 10/03/16 at 16:30 Morphine Sulfate (morphine) 2 mg Q4H PRN IV pain Last administered on 10/05/16 13:53; Admin Dose 2 MG; Start 10/04/16 at 09:30 Aspirin (Halfprin) 81 mg DAILY PO Last administered on 10/06/16 08:13; Admin Dose 81 MG; Start 10/05/16 at 09:00 Metoprolol Tartrate (Lopressor) 12.5 mg BID PO Last administered on 10/06/16 19 :50; Admin Dose 12.5 MG; Start 10/04/16 at 10:00 Pantoprazole (Protonix Tab) 40 mg DAILY@06 PO Last administered on 10/06/16 06: 04; Admin Dose 40 MG; Start 10/05/16 at 06:00 Enoxaparin Sodium (Lovenox) 40 mg DAILY SC Last administered on 10/06/16 08:17 ; Admin Dose 40 MG; Start 10/06/16 at 09:00 Lisinopril (Zestril) 20 mg DAILY PO ; Start 10/07/16 at 09:00 Docusate Sodium (Colace) 100 mg BID PO Last administered on 10/06/16 19:50; Admin Dose 100 MG; Start 10/06/16 at 13:30 Hydralazine HCl (Apresoline) 10 mg Q6H PRN IV ELEVATED BLOOD PRESSURE; Start at 13:30 JOYCELYN VASQUEZ October 06, 2016 22:02
[2016-10-07] VITALS (13 sets, daily range): BP systolic 116–146; BP diastolic 73–92; PULSE 66–96; RESP 16–18
[2016-10-07] MEDS: PANTOPRAZOLE (EC) 40 MG TAB PO SCH (06:18)
[2016-10-07 08:29] LABS: ADD SCAN DIFF NO
[2016-10-07] MEDS: DOCUSATE SODIUM 100 MG CAP PO SCH ×2 (08:36→20:45)
[2016-10-07] MEDS: ASPIRIN (EC) 81 MG TAB PO SCH (08:36)
[2016-10-07] MEDS: METOPROLOL 25 MG TAB PO SCH ×2 (08:36→20:46)
[2016-10-07] MEDS: LISINOPRIL 20 MG TAB PO SCH (08:37)
[2016-10-07] MEDS: ENOXAPARIN 40 MG/0.4 ML SYG SC SCH (08:39)
[2016-10-07 08:52] LABS: BASOPHILS % 0.4 % (0.0-2.0); EOSINOPHILS # 0.2 10^3/ul (0.0-0.5); EOSINOPHILS % 2.2 % (0.0-7.0); HEMATOCRIT 42.1 % (37.0-47.0); HEMOGLOBIN 14.2 g/dl (12.0-16.0); LYMPHOCYTES # 1.9 10^3/ul (0.8-2.9); LYMPHOCYTES % 26.4 % (15.0-51.0); MEAN CORPUSCULAR HEMOGLOBIN 30.9 pg (29.0-33.0); MEAN CORPUSCULAR HGB CONC 33.7 g/dl (32.0-37.0); MEAN CORPUSCULAR VOLUME 91.5 fl (82.0-101.0); MEAN PLATELET VOLUME 11.5 fl (7.4-10.4); MONOCYTE # 0.6 10^3/ul (0.3-0.9); MONOCYTES % 8.4 % (0.0-11.0); NEUTROPHIL # 4.5 10^3/ul (1.6-7.5); NEUTROPHILS % 62.3 % (39.0-77.0); PLATELET COUNT 197 10^3/UL (140-415); RED CELL DISTRIBUTION WIDTH 12.9 % (11.5-14.5); WHITE BLOOD COUNT 7.3 10^3/ul (4.8-10.8)
[2016-10-07 09:09] LABS: CALCIUM 9.4 mg/dl (8.4-10.2); CREATININE 0.65 mg/dl (0.44-1.00); POTASSIUM 4.3 mmol/L (3.5-5.1)
[2016-10-07 09:19] LABS: PHOSPHORUS 4.2 mg/dl (2.5-4.9)
--- NOTE | 2016-10-07 12:34 | PDOCDIS ---
Discharge Instructions CONDITION Patient Condition: Stable HOME CARE INSTRUCTIONS: Special Diet: 1800 calorie 2gm Na ACTIVITY: Activity Restrictions: Slowly Increase Activity FOLLOW UP/APPOINTMENTS Appointments Please take your medications, see your doctor in the clinic in 1 week. JOYCELYN VASQUEZ October 07, 2016 12:34
[2016-10-07] MEDS ORDERED: METO-448 PO (12:35)
[2016-10-07] MEDS ORDERED: LISI20TA11 PO (12:35)
--- NOTE | 2016-10-07 13:13 | DS ---
DATE OF ADMISSION: 10/06/2016 DATE OF DISCHARGE: 10/07/2016 HOSPITAL COURSE: This 56-year-old female originally admitted on 10/03/2016, being discharged home o n 10/07/2016 pending clearance from the cardiology team. The patient came in initially with chest p ain symptoms. She was admitted to telemetry floor, seen by cardiology team. She ruled out for acut e coronary syndrome. She was found with essential hypertension. She had adjustments made to her bl ood pressure medicines as well. She was also found with paroxysmal episodes of SVT seen on telemetr y and again patient's blood pressure medicines adjusted for that. She had no more episodes of SVT o n the day of discharge. CT chest was done that showed no evidence of any pulmonary embolism. She w as able to ambulate and tolerate a p.o. diet. Her blood pressure remained stable, heart rate remain ed stable. When she gets clearance from the cardiology team today, she will be discharged home toda y in improved condition. If she goes today, she will go home with: 1. Lisinopril 20 mg daily. 2. Lopressor 12.5 mg b.i.d. 3. Seroquel 100 mg at bedtime. She will need to follow up with primary care doctor team in the clinic. FINAL DIAGNOSES: 1. Chest pain, ruled out for acute coronary syndrome. 2. Essential hypertension, now controlled. 3. Anxiety disorder. 4. Intermittent tachycardia and bradycardia with paroxysmal supraventricular tachycardia seen on te lemetry, now resolved. Of note, her echocardiogram was performed that showed ejection fraction of 60%. There was normal le ft ventricular systolic function, normal left ventricular cavity size. There was mild concentric le ft ventricular hypertrophy. There was some stage I diastolic dysfunction, but no significant aortic stenosis or insufficiency. Time spent discharging patient, 45 minutes. Dictated By: JOYCELYN BURNHAM Conf#: [id number] DID#: [id number]
--- NOTE | 2016-10-07 17:32 | CONS ---
Date/Time of Note Date/Time of Note DATE: 10/07/16 TIME: 17:31 Assessment/Plan Assessment/Plan Additional Assessment/Plan Hypertension Abdominal pain and chest pain Nausea and vomiting Psychiatric disorder SVT Preserved ejection fraction -Blood pressure trend improved, continue lisinopril. No further episodes of SVT noted on telemetry. Would continue Lopressor. DC planning Consultation Date/Type/Reason Admit Date/Time October 06, 2016 at 12:39 Type of Consultation: cv 24 HR Interval Summary Free Text/Dictation Continues to feel better, denies chest pain, shortness of breath, dizziness Exam/Review of Systems Vital Signs Vitals Vital Signs Date Time Temp Pulse Resp B/P Pulse Ox O2 Delivery O2 Flow Rate FiO2 10/07/16 15:48 98.2 65 16 140/88 97 10/03/16 16:03 Room Air Intake and Output 10/06/16 10/06/16 10/07/16 15:00 23:00 07:00 Intake Total 800 ml 600 ml Balance 800 ml 600 ml Exam Ambulating in the room, no apparent distress Constitutional: alert, obese, oriented Head: normocephalic Respiratory: other (Coarse breath sounds bilaterally, no wheezing) Cardiovascular: other (S1-S2 heard), regular rate and rhythm Gastrointestinal: bowel sounds, non-tender, soft Extremities: other (No significant edema) Results Result Diagram: 10/07/16 0804 10/07/16 0804 Results 24 hrs Laboratory Tests Test 10/07/16 08:04 White Blood Count 7.3 Red Blood Count 4.60 Hemoglobin 14.2 Hematocrit 42.1 Mean Corpuscular Volume 91.5 Mean Corpuscular Hemoglobin 30.9 Mean Corpuscular Hemoglobin Concent 33.7 Red Cell Distribution Width 12.9 Platelet Count 197 Mean Platelet Volume 11.5 H Neutrophils % 62.3 Lymphocytes % 26.4 Monocytes % 8.4 Eosinophils % 2.2 Basophils % 0.4 Nucleated Red Blood Cells % 0.0 Neutrophils # 4.5 Lymphocytes # 1.9 Monocytes # 0.6 Eosinophils # 0.2 Basophils # 0.0 Nucleated Red Blood Cells # 0.0 Sodium Level 138 Potassium Level 4.3 Chloride Level 104 Carbon Dioxide Level 28 Anion Gap 10 # Blood Urea Nitrogen 14 Creatinine 0.65 Glucose Level 107 Calcium Level 9.4 Phosphorus Level 4.2 Magnesium Level 2.0 Medications Medications Current Medications Acetaminophen (Tylenol Tab) 325 mg Q6H PRN PO PAIN AND OR ELEVATED TEMP Last administered on 10/06/16 19:50; Admin Dose 325 MG; Start 10/03/16 at 16:30 Ondansetron HCl (Zofran Inj) 4 mg Q6H PRN IV NAUSEA AND/OR VOMITING Last administered on 10/03/16 16:51; Admin Dose 4 MG; Start 10/03/16 at 16:30 Alprazolam (Xanax) 0.5 mg Q8H PRN PO ANXIETY; Start 10/03/16 at 16:30 Morphine Sulfate (morphine) 2 mg Q4H PRN IV pain Last administered on 10/05/16 13:53; Admin Dose 2 MG; Start 10/04/16 at 09:30 Aspirin (Halfprin) 81 mg DAILY PO Last administered on 10/07/16 08:36; Admin Dose 81 MG; Start 10/05/16 at 09:00 Metoprolol Tartrate (Lopressor) 12.5 mg BID PO Last administered on 10/07/16 08 :36; Admin Dose 12.5 MG; Start 10/04/16 at 10:00 Pantoprazole (Protonix Tab) 40 mg DAILY@06 PO Last administered on 10/07/16 06: 18; Admin Dose 40 MG; Start 10/05/16 at 06:00 Enoxaparin Sodium (Lovenox) 40 mg DAILY SC Last administered on 10/07/16 08:39 ; Admin Dose 40 MG; Start 10/06/16 at 09:00 Lisinopril (Zestril) 20 mg DAILY PO Last administered on 10/07/16 08:37; Admin Dose 20 MG; Start 10/07/16 at 09:00 Docusate Sodium (Colace) 100 mg BID PO Last administered on 10/07/16 08:36; Admin Dose 100 MG; Start 10/06/16 at 13:30 Hydralazine HCl (Apresoline) 10 mg Q6H PRN IV ELEVATED BLOOD PRESSURE; Start at 13:30 Antonio Mooney DO October 07, 2016 17:32
[2016-10-07] MEDS: ACETAMINOPHEN 325 MG TAB PO PRN (20:50)
[2016-10-08] VITALS (8 sets, daily range): BP systolic 122–160; BP diastolic 76–85; PULSE 60–83; RESP 16–78
[2016-10-08] MEDS: PANTOPRAZOLE (EC) 40 MG TAB PO SCH (05:10)
[2016-10-08 07:35] LABS: ADD SCAN DIFF NO
[2016-10-08 07:45] LABS: BASOPHILS % 0.4 % (0.0-2.0); EOSINOPHILS # 0.2 10^3/ul (0.0-0.5); HEMATOCRIT 41.6 % (37.0-47.0); HEMOGLOBIN 13.6 g/dl (12.0-16.0); LYMPHOCYTES # 2.5 10^3/ul (0.8-2.9); LYMPHOCYTES % 33.8 % (15.0-51.0); MEAN CORPUSCULAR HEMOGLOBIN 30.2 pg (29.0-33.0); MEAN CORPUSCULAR HGB CONC 32.7 g/dl (32.0-37.0); MEAN CORPUSCULAR VOLUME 92.2 fl (82.0-101.0); MEAN PLATELET VOLUME 11.8 fl (7.4-10.4); MONOCYTE # 0.6 10^3/ul (0.3-0.9); MONOCYTES % 8.1 % (0.0-11.0); NEUTROPHIL # 4.1 10^3/ul (1.6-7.5); NEUTROPHILS % 55.4 % (39.0-77.0); PLATELET COUNT 177 10^3/UL (140-415); RED BLOOD COUNT 4.51 10^6/ul (4.20-5.40); RED CELL DISTRIBUTION WIDTH 12.9 % (11.5-14.5); WHITE BLOOD COUNT 7.4 10^3/ul (4.8-10.8)
[2016-10-08 08:10] LABS: POTASSIUM 3.9 mmol/L (3.5-5.1)
[2016-10-08 08:13] LABS: CALCIUM 9.3 mg/dl (8.4-10.2); CREATININE 0.61 mg/dl (0.44-1.00)
[2016-10-08] MEDS: ASPIRIN (EC) 81 MG TAB PO SCH (09:10)
[2016-10-08] MEDS: DOCUSATE SODIUM 100 MG CAP PO SCH (09:10)
[2016-10-08] MEDS: LISINOPRIL 20 MG TAB PO SCH (09:10)
[2016-10-08] MEDS: METOPROLOL 25 MG TAB PO SCH (09:11)
[2016-10-08] MEDS: ENOXAPARIN 40 MG/0.4 ML SYG SC SCH (09:13)
--- NOTE | 2016-10-08 13:42 | DS ---
Date/Time of Note Date/Time of Note DATE: 10/08/16 TIME: 13:41 Discharge Summary Admission/Discharge Info Admit Date/Time October 06, 2016 at 12:39 Discharge Date/Time Final Diagnosis FINAL DIAGNOSES: 1. Chest pain, ruled out for acute coronary syndrome. 2. Essential hypertension, now controlled. 3. Anxiety disorder. 4. Intermittent tachycardia and bradycardia with paroxysmal supraventricular tachycardia seen on telemetry, now resolved. Hospital Course DATE OF ADMISSION: 10/06/2016 DATE OF DISCHARGE: 10/08/2016 HOSPITAL COURSE: This 56-year-old female originally admitted on 10/03/2016, being discharged home on 10/08/2016 pending clearance from the cardiology team. The patient came in initially with chest pain symptoms. She was admitted to telemetry floor, seen by cardiology team. She ruled out for acute coronary syndrome. She was found with essential hypertension. She had adjustments made to her blood pressure medicines as well. She was also found with paroxysmal episodes of SVT seen on telemetry and again patient's blood pressure medicines adjusted for that. She had no more episodes of SVT on the day of discharge. CT chest was done that showed no evidence of any pulmonary embolism. She was able to ambulate and tolerate a p.o. diet. Her blood pressure remained stable, heart rate remained stable. She will be discharged home today in improved condition. She will go home with: 1. Lisinopril 20 mg daily. 2. Lopressor 12.5 mg b.i.d. 3. Seroquel 100 mg at bedtime. She will need to follow up with primary care doctor team in the clinic. Of note, her echocardiogram was performed that showed ejection fraction of 60%. There was normal left ventricular systolic function, normal left ventricular cavity size. There was mild concentric left ventricular hypertrophy. There was some stage I diastolic dysfunction, but no significant aortic stenosis or insufficiency. Time spent discharging patient, 45 minutes. Home Meds Active Scripts Metoprolol Tartrate* (Lopressor*) 25 Mg Tab, 12.5 MG PO BID, #60 TAB 2 Refills Prov:JOYCELYN VASQUEZ S. 10/07/16 Lisinopril* (Lisinopril*) 20 Mg Tablet, 20 MG PO DAILY, #30 TAB 2 Refills Prov:JOYCELYN VASQUEZ S. 10/07/16 Reported Medications Quetiapine Fumarate* (Seroquel*) 100 Mg Tablet, 100 MG PO HS, TAB 08/26/14 Discontinued Reported Medications Lisinopril* (Lisinopril*) 10 Mg Tablet, 10 MG PO DAILY, #30 TAB 10/03/16 Diphenhydramine Hcl* (Benadryl*) 25 Mg Cap, 25 MG PO Q6H Y for ITCHING, CAP 10/03/16 Discontinued Scripts Acetamin/Butalbital/Caffeine* (Fioricet*) 1 Tab Tab, 1 TAB PO Q4H Y for PAIN LEVEL 1-5 for 14 Days, TAB Prov:ASPEN CHILEL MD 12/01/15 Pending Labs Laboratory Tests Test 10/08/16 06:50 White Blood Count 7.410^3/ul (4.8-10.8) Red Blood Count 4.5110^6/ul (4.20-5.40) Hemoglobin 13.6g/dl (12.0-16.0) Hematocrit 41.6% (37.0-47.0) Mean Corpuscular Volume 92.2fl (82.0-101.0) Mean Corpuscular Hemoglobin 30.2pg (29.0-33.0) Mean Corpuscular Hemoglobin Concent 32.7g/dl (32.0-37.0) Red Cell Distribution Width 12.9% (11.5-14.5) Platelet Count 10579^3/UL (140-415) Mean Platelet Volume 11.8fl (7.4-10.4) Neutrophils % 55.4% (39.0-77.0) Lymphocytes % 33.8% (15.0-51.0) Monocytes % 8.1% (0.0-11.0) Eosinophils % 2.0% (0.0-7.0) Basophils % 0.4% (0.0-2.0) Nucleated Red Blood Cells % 0.0/100WBC (0.0-0.0) Neutrophils # 4.110^3/ul (1.6-7.5) Lymphocytes # 2.510^3/ul (0.8-2.9) Monocytes # 0.610^3/ul (0.3-0.9) Eosinophils # 0.210^3/ul (0.0-0.5) Basophils # 0.010^3/ul (0.0-0.1) Nucleated Red Blood Cells # 0.010^3/ul (0.0-0.0) Sodium Level 141mmol/L (135-144) Potassium Level 3.9mmol/L (3.5-5.1) Chloride Level 102mmol/L (97-110) Carbon Dioxide Level 28mmol/L (21-31) Anion Gap 15 (8-16) Blood Urea Nitrogen 16mg/dl (7-20) Creatinine 0.61mg/dl (0.44-1.00) Glucose Level 97mg/dl (70-220) Calcium Level 9.3mg/dl (8.4-10.2) JOYCELYN VASQUEZ October 08, 2016 13:42
--- NOTE | 2016-10-09 08:40 | RADRPT ---
Vent Rate: 74 bpm RR Interval: 0 msec TN Interval: 150 msec QRS Duration: 88 msec QT Interval: 430 msec QTC Interval: 477 msec P-R-T [place]: 45 - 37 - 40 degrees Normal sinus rhythm Normal ECG Electronically Signed By: Frank Corea [id number]
== END 2016-10-08 18:54 | disposition home or self-care (01) | DRG 313 ==
LOC: E/R 18:45 → MS4 10-03 05:10 → OBSVTOIN 10-06 12:39
PROVIDERS: ADMIT Family Medicine; ATTEND Family Medicine
DX: R07.9 Chest pain, unspecified (principal); I47.1 Supraventricular tachycardia; I10 Essential (primary) hypertension; F31.9 Bipolar disorder, unspecified; F41.9 Anxiety disorder, unspecified; R00.1 Bradycardia, unspecified; R10.9 Unspecified abdominal pain
CPT/HCPCS: 36415; 71010; 71275; 80048; 80053; 80061; 80076; 81001; 81003; 82150; 82550; 82553; 83036; 83690; 83735; 84100; 84443; 84484; 85025; 85378; 85610; 85730; 87081; 93005; 93306; 96374; 96376; G0378; J1650; J2270; J2405; J3480; J7030; Q9967

== ENCOUNTER 2016-10-14 15:00 | Outpatient (CLI) | payer OTHER ==
[~2016-10-14] VITALS: Ht 165.1 cm; Wt 90.0 kg
[~2016-10-14 15:00] MED LIST changes: -FIORICET PO; +LISI20TA11 PO; +METO-448 PO
[2016-10-14 15:06] VITALS: BP 151/90; PULSE 65; RESP 18; Ht 165.1 cm; Wt 90.0 kg
[2016-10-14] MEDS ORDERED: BEN50 PO (15:23)
[2016-10-14] MEDS ORDERED: PROP20TA4 PO (15:23)
--- NOTE | 2016-10-14 16:21 | PN ---
Date/Time of Note Date/Time of Note DATE: 10/14/16 TIME: 16:17 Outpatient Progress Note Chief Complaint Chest pain/hypertension/depression/anxiety HPI Chest pain/recently hospitalized with chest pain, at present patient does not have any chest pain, no palpitation, no dizziness, no pain in the left arm, no pain in the back, or neck, Patient had tracheal bradycardia, in the hospital, at present heart rate is normal, Hypertension/no headache or dizziness, no lightheadedness, no local focal weakness, Depression/patient slightly depressed, no suicidal, Anxiety completion anxious and nervous, Review of Systems Const: No Fever, no chills, no Wt. loss, no Fatigue, normal appetite, no diaphoresis. Eyes: No pain, no discharge, no redness, no visual change, no foreign body. ENT: No pain, no bleeding, no congestion, no sore throat, no dysphagia, no discharge or rhinitis. Lymph: No adenopathy, no tender nodes, no lymphedema. Resp: No SOB, no cough, no sputum, no wheezing, no chest pain. CV: No chest pain, no palpitaions, no LENNON, no PND, no edema. GI: Normal appetite, no pain, no nausea, no vomiting, no diarrhea, no blood, no constipation. : No frequency, no urgency, no dysuria, no hematuria, no flank pain, no discharge, no bleeding. Musc: no back pain, no neck pain, no knee pain, no restricted ROM. Skin: No rash, no skin lesions, no erythema, no laceration, no bruising, no pruritus. Neuro: No ROY, no dizziness, no syncope, no seizure, no focal-weakness. Endo: No polyuria, no polydypsia, no dry-skin, no temp-intolerance. Psych: No hallucinations, slightly depression, slightly anxiety, no suicidal ideation. Ext: No edema, no pain, no ulcer, no weakness. Physical Exam Vital Signs Date Time Temp Pulse Resp B/P Pulse Ox O2 Delivery O2 Flow Rate FiO2 10/14/16 15:06 98.8 65 18 151/90 97 Room Air General Appearance: A 56 year-old female 0who appears well-developed, well- nourished, in no acute distress. HEENT: Head normocephalic, atraumatic. Pupils equal, round, reactive to light and accommodate. Sclerae are no jaundice. Nasal turbinates pink without erythema or nasal discharge. Mucous membranes pink and moist without lesions. Oropharynx clear without any exudate or discharge. NECK: Supple. Trachea midline, No thyromegaly, No cervical lymphadenopathy, No mass, No carotid bruits, No JVD, Carotid pulses 2+ bilaterally. PULMONARY: Clear to auscultaion bilaterally, No retractions, Chest expansion symmetric bilaterally, no rales, no ronchi, no dulness on percussion. CARDIAC: Normal SI and S2, Regular rate and rythm, no murmur, gallop, or rub. GASTROINTESTINAL: Abdomen is soft, non-tender, Non Rigid, No distention, Positive bowel sounds x4 quadrants, Liver normal. SKIN: Warm, dry, no rash, no bruise, no echmosis. EXTREMITIES: Bilateral lower extremities normal, no edema, no phlabitus, pulse palpable, no contracture. MUSCULOSKELETAL: Spine Normal, Non-tender, Normal range of motion, No swelling, no deformity, no clubbing, or cyanosis, the patient has no edema to bilateral lower extremities, dorsalis pedis pulses palpable bilaterally. NEUROLOGIC: The patient is awake, alert, oriented, responding to yes/no questions appropriately, moving all extremities, cranial nerve intact, normal strenght, normal power, normal coordination, normal gait. Allergies Coded Allergies: No Known Allergy (Unverified , 10/03/16) [facility] Hypertension/depression/anxiety Recent admission with a chest pain, Social Hx No smoking no drinking, Family Hx Noncontributory Patient History: Cardiac disorder 32 MOTHER Endocrine and metabolic disease 32 MOTHER Hypertension 34 MOTHER Assessment/Plan Impression Chest pain resolved Hypertension Depression Anxiety Plan Patient education done, discussed about anxiety and depression, if patient persists then patient advised to follow with the primary care physician for follow-up, Patient has all the medication, patient advised about tachybradycardia syndrome , will monitor closely, patient to take pulse before taking medication, Patient to follow with the primary care physician, Medications Home Meds Active Scripts Metoprolol Tartrate* (Lopressor*) 25 Mg Tab, 12.5 MG PO BID, #60 TAB 2 Refills Prov:JOYCELYN VASQUEZ. 10/07/16 Lisinopril* (Lisinopril*) 20 Mg Tablet, 20 MG PO DAILY, #30 TAB 2 Refills Prov:JOYCELYN VASQUEZ 10/07/16 Reported Medications Diphenhydramine Hcl* (Benadryl*) 50 Mg Cap, 50 MG PO QHS Y for ITCHING, CAP 10/14/16 Propranolol Hcl* (Propranolol Hcl*) 20 Mg Tablet, 20 MG PO BID, TAB 10/14/16 Discontinued Reported Medications Quetiapine Fumarate* (Seroquel*) 100 Mg Tablet, 100 MG PO HS, TAB 08/26/14 Lisinopril* (Lisinopril*) 10 Mg Tablet, 10 MG PO DAILY, #30 TAB 10/03/16 TOREY MONTANO MD October 14, 2016 16:21
== END 2016-10-14 16:53 | disposition home or self-care (01) ==
LOC: DCC 15:00
PROVIDERS: ATTEND Internal Medicine
DX: R07.9 Chest pain, unspecified (principal); I10 Essential (primary) hypertension; F41.8 Other specified anxiety disorders

== ENCOUNTER 2016-10-28 13:07 | Outpatient (CLI) | payer OTHER ==
[~2016-10-28] VITALS: Ht 165.1 cm; Wt 89.1 kg
[~2016-10-28 13:07] MED LIST changes: +BEN50 PO; +PROP20TA4 PO; -QUET100T PO
[2016-10-28 13:44] VITALS: BP 117/82; PULSE 64; RESP 16; Ht 165.1 cm; Wt 89.1 kg
--- NOTE | 2016-10-28 16:06 | PN ---
Date/Time of Note Date/Time of Note DATE: 10/28/16 TIME: 16:03 Outpatient Progress Note Chief Complaint Hypertension/depression/ASHD/anxiety HPI Hypertension/no headache or dizziness, no lightheadedness, no nausea or vomiting , Depression patient slightly depressed, no suicidal, ASHD denies any chest pain no PND orthopnea, Anxiety/patient anxious and nervous, no suicidal, Review of Systems Const: No Fever, no chills, no Wt. loss, no Fatigue, normal appetite, no diaphoresis. Eyes: No pain, no discharge, no redness, no visual change, no foreign body. ENT: No pain, no bleeding, no congestion, no sore throat, no dysphagia, no discharge or rhinitis. Lymph: No adenopathy, no tender nodes, no lymphedema. Resp: No SOB, no cough, no sputum, no wheezing, no chest pain. CV: No chest pain, no palpitaions, no LENNON, no PND, no edema. GI: Normal appetite, no pain, no nausea, no vomiting, no diarrhea, no blood, no constipation. : No frequency, no urgency, no dysuria, no hematuria, no flank pain, no discharge, no bleeding. Musc: No bone/joint pain, no back pain, no neck pain, no knee pain, no restricted ROM. Skin: No rash, no skin lesions, no erythema, no laceration, no bruising, no pruritus. Neuro: No ROY, no dizziness, no syncope, no seizure, no focal-weakness. Endo: No polyuria, no polydypsia, no dry-skin, no temp-intolerance. Psych: No hallucinations, slightly depression, slight anxiety, no suicidal ideation. Ext: No edema, no pain, no ulcer, no weakness. Physical Exam Vital Signs Date Time Temp Pulse Resp B/P Pulse Ox O2 Delivery O2 Flow Rate FiO2 10/28/16 13:44 98.7 64 16 117/82 97 Room Air General Appearance: A 56 year-old female who appears well-developed, well- nourished, in no acute distress. HEENT: Head normocephalic, atraumatic. Pupils equal, round, reactive to light and accommodate. Sclerae are no jaundice. Nasal turbinates pink without erythema or nasal discharge. Mucous membranes pink and moist without lesions. Oropharynx clear without any exudate or discharge. NECK: Supple. Trachea midline, No thyromegaly, No cervical lymphadenopathy, No mass, No carotid bruits, No JVD, Carotid pulses 2+ bilaterally. PULMONARY: Clear to auscultaion bilaterally, No retractions, Chest expansion symmetric bilaterally, no rales, no ronchi, no dulness on percussion. CARDIAC: Normal SI and S2, Regular rate and rythm, no murmur, gallop, or rub. GASTROINTESTINAL: Abdomen is soft, non-tender, Non Rigid, No distention, Positive bowel sounds x4 quadrants, Liver normal. SKIN: Warm, dry, no rash, no bruise, no echmosis. EXTREMITIES: Bilateral lower extremities normal, no edema, no phlabitus, pulse palpable, no contracture. MUSCULOSKELETAL: Spine Normal, Non-tender, Normal range of motion, No swelling, no deformity, no clubbing, or cyanosis, the patient has no edema to bilateral lower extremities, dorsalis pedis pulses palpable bilaterally. NEUROLOGIC: The patient is awake, alert, oriented, responding to yes/no questions appropriately, moving all extremities, cranial nerve intact, normal strenght, normal power, normal coordination, normal gait. Allergies Coded Allergies: No Known Allergy (Unverified , 10/03/16) PMH No change Social Hx No change Family Hx No change Patient History: Cardiac disorder 32 MOTHER Endocrine and metabolic disease 32 MOTHER Hypertension 32 MOTHER Assessment/Plan Impression Hypertension/depression/ASHD/anxiety Plan Patient education done about her condition, Patient advised to follow with the primary care physician, patient forgot her bottles, patient needs medication, Patient to bring all the bottles tomorrow and will refill the medication, Patient advised to increase activity, and lose weight slightly, Medications Home Meds Active Scripts Metoprolol Tartrate* (Lopressor*) 25 Mg Tab, 12.5 MG PO BID, #60 TAB 2 Refills Prov:JOYCELYN VASQUEZ S. 10/07/16 Lisinopril* (Lisinopril*) 20 Mg Tablet, 20 MG PO DAILY, #30 TAB 2 Refills Prov:RAJUAN DIEGO JESUSP S. 10/07/16 Reported Medications Diphenhydramine Hcl* (Benadryl*) 50 Mg Cap, 50 MG PO QHS Y for ITCHING, CAP 10/14/16 Propranolol Hcl* (Propranolol Hcl*) 20 Mg Tablet, 20 MG PO BID, TAB 10/14/16 TOREY MONTANO MD October 28, 2016 16:06
== END 2016-10-28 17:00 | disposition home or self-care (01) ==
LOC: DCC 13:07
PROVIDERS: ATTEND Internal Medicine
DX: I10 Essential (primary) hypertension (principal); F32.9 Major depressive disorder, single episode, unspecified; I25.10 Atherosclerotic heart disease of native coronary artery without angina pectoris; F41.9 Anxiety disorder, unspecified